=== PATIENT | female | born 1965 ===

== ENCOUNTER 2017-09-19 13:40 | Day surgery (SDC) | payer OTHER ==
[~2017-09-19] VITALS: Ht 167.6 cm; Wt 99.2 kg
[~2017-09-19 13:40] MED LIST: BUPIVACAINE/PF 0.25% ONE; CEFOTETAN 2 GM ONE; EPINEPHRINE 1 MG/ML, 1ML ONE; NEOMY/POLYMYXIN B GU IRR. 1 ML IRRIG ONE
[2017-09-19] MEDS ORDERED: NONE PER PT (14:25)
[2017-09-19] MEDS ORDERED: LACTATED RINGERS 1,000 ML IV SCH (14:26)
[2017-09-19] MEDS ORDERED: ACETAMINOPHEN 500 MG TABLET PO ONE (14:30)
[2017-09-19] MEDS ORDERED: MIDAZOLAM 1 MG/ML, 2ML ONE (14:30)
[2017-09-19] MEDS ORDERED: SCOPOLAMINE PATCH, 1.5MG PATCH.TD72 TD ONE (14:30)
[2017-09-19] MEDS ORDERED: ONDANSETRON ODT 8 MG PO ONE (14:30)
[2017-09-19] MEDS ORDERED: GABAPENTIN 300 MG CAPSULE PO ONE (14:30)
[2017-09-19] MEDS ORDERED: OxyconTIN ER 20 MG TAB.ER PO ONE (14:30)
[2017-09-19] MEDS ORDERED: FENTANYL PF 250 MCG/5ML ONE (14:35)
[2017-09-19] MEDS ORDERED: LIDOCAINE 2%, 10ML ONE (14:35)
[2017-09-19] MEDS ORDERED: PROPOFOL 10 MG/ML, 20ML ONE (14:35)
[2017-09-19] MEDS ORDERED: ROCURONIUM 10MG/ML,5ML ONE (14:36)
[2017-09-19] MEDS ORDERED: DEXAMETHASONE 4 MG/ML, 1ML ONE ×2 (14:36)
[2017-09-19 15:12] LABS: HCG UR SG 1.025 (1.003-1.030)
[2017-09-19] MEDS ORDERED: MEPERIDINE/PF 25MG/0.5ML IVPush PRN (16:00)
[2017-09-19] MEDS ORDERED: hydrALAzine 20 MG/ML, 1ML IV PRN (16:00)
[2017-09-19] MEDS ORDERED: PROMETHAZINE 25 MG/ML, 1ML IV PRN (16:00)
[2017-09-19] MEDS ORDERED: LABETALOL 5MG/ML, 20ML IV PRN (16:00)
[2017-09-19] MEDS ORDERED: FENTANYL PF 100 MCG/2ML ONE ×2 (16:34→16:54)
[2017-09-19] MEDS ORDERED: hydrALAzine 20 MG/ML, 1ML ONE (16:53)
[2017-09-19] MEDS ORDERED: MEPERIDINE/PF 25MG/0.5ML ONE (16:54)
[2017-09-19] MEDS: FENTANYL PF 100 MCG/2ML IV PRN ×2 (17:12→17:45)
[2017-09-19] MEDS ORDERED: morphine SULFATE 10 MG/ML, 1ML ONE ×2 (17:47→18:21)
[2017-09-19] MEDS: morphine SULFATE 10 MG/ML, 1ML IV PRN ×6 (17:49→18:51)
[2017-09-19 20:48] VITALS: BP 117/75
[2017-09-19] MEDS ORDERED: ONDANSETRON 2MG/ML, 2ML IV PRN (21:00)
[2017-09-19] MEDS ORDERED: IBUPROFEN 600 MG TABLET PO PRN (21:00)
[2017-09-19] MEDS ORDERED: KETOROLAC 30 MG/1 ML IV PRN (21:00)
[2017-09-19] MEDS ORDERED: HYDROmorphone 1 MG/ML, 1ML IV PRN (21:00)
== END 2017-09-19 21:55 | disposition home or self-care (01) ==
LOC: OR 13:40 → MERGE 16:00 → 4NOR 19:55 → OR 21:55
PROVIDERS: ATTEND Obstetrics & Gynecology Female Pelvic Medicine and Reconstructive Surgery
DX: N94.6 Dysmenorrhea, unspecified (principal); N87.9 Dysplasia of cervix uteri, unspecified; N39.46 Mixed incontinence; J45.909 Unspecified asthma, uncomplicated; G43.909 Migraine, unspecified, not intractable, without status migrainosus; Z98.51 Tubal ligation status
CPT/HCPCS: 57265; 57282; 57288; 58552; 81025; 88307; C1771; J0171; J0360; J1100; J2175; J2250; J2270; J2704; J3010; J3490; J7120; Q0162; S0074